=== PATIENT | female | born 1990 | race Two or more races ===

== ENCOUNTER 2022-01-10 19:50 | Emergency (ER) | payer OTHER ==
[~2022-01-10] VITALS: Ht 157.5 cm; Wt 58.5 kg
[2022-01-10] MEDS ORDERED: PRENA1 CHEW TA1.4 MG (20:08)
[2022-01-11] MEDS ORDERED: IBU800 MG PO (21:06)
[2022-01-11] MEDS ORDERED: ACETAMINOPHEN500 M1 PO (21:07)
[2022-01-11] MEDS ORDERED: METRONIDAZOLE500 MG PO (21:08)
== END 2022-01-10 22:48 | disposition home or self-care (01) ==
LOC: ER 19:50
DX: O20.9 Hemorrhage in early pregnancy, unspecified (principal)

== ENCOUNTER 2022-01-11 19:16 | Day surgery (SDC) | payer OTHER ==
[~2022-01-11] VITALS: Ht 157.5 cm; Wt 56.7 kg
[~2022-01-11 19:16] MED LIST: PRENA1 CHEW TA1.4 MG
[2022-01-11] MEDS ORDERED: IBU800 MG PO (21:06)
[2022-01-11] MEDS ORDERED: ACETAMINOPHEN500 M1 PO (21:07)
[2022-01-11] MEDS ORDERED: METRONIDAZOLE500 MG PO (21:08)
== END 2022-01-12 12:59 | disposition home or self-care (01) ==
LOC: CIR.AMB 19:16 → SEC-K 19:16 → O/R 19:16 → ER 19:16 → O/R 01-12 07:21 → SEC-K 01-12 07:21 → O/R 01-12 12:42 → CIR.AMB 01-12 12:59
PROVIDERS: ATTEND General Practice
DX: O03.4 Incomplete spontaneous abortion without complication (principal); Z20.822 Contact with and (suspected) exposure to COVID-19

== ENCOUNTER 2022-09-09 08:27 | Outpatient (CLI) | payer OTHER ==
[~2022-09-09 08:27] MED LIST changes: +ACETAMINOPHEN500 M1 PO; +IBU800 MG PO; +METRONIDAZOLE500 MG PO
== END 2022-09-09 09:35 | disposition home or self-care (01) ==
LOC: PRENATAL 08:27
PROVIDERS: ATTEND Obstetrics & Gynecology Maternal & Fetal Medicine
DX: O36.80X0 Pregnancy with inconclusive fetal viability, not applicable or unspecified (principal)

== ENCOUNTER 2022-10-29 08:13 | Outpatient (CLI) | payer OTHER | END 2022-10-29 09:24 | disposition home or self-care (01) | LOC: PRENATAL 08:13 | PROVIDERS: ATTEND Obstetrics & Gynecology Maternal & Fetal Medicine | DX: O35.9XX0 Maternal care for (suspected) fetal abnormality and damage, unspecified, not applicable or unspecified (principal); O35.3XX0 Maternal care for (suspected) damage to fetus from viral disease in mother, not applicable or unspecified; Z3A.20 20 weeks gestation of pregnancy ==

== ENCOUNTER 2023-01-27 09:32 | Outpatient (CLI) | payer OTHER | END 2023-01-27 10:45 | disposition home or self-care (01) | LOC: PRENATAL 09:32 | PROVIDERS: ATTEND Obstetrics & Gynecology Maternal & Fetal Medicine | DX: O26.849 Uterine size-date discrepancy, unspecified trimester (principal); O36.8199 Decreased fetal movements, unspecified trimester, other fetus; Z3A.34 34 weeks gestation of pregnancy ==

== ENCOUNTER 2023-03-08 13:03 | Inpatient (IN) | payer OTHER ==
[~2023-03-08] VITALS: Ht 157.5 cm; Wt 2.7 kg
[2023-03-21] MEDS ORDERED: PRENATAL TABLE1 EAC4 PO (06:42)
[2023-03-24] MEDS ORDERED: SURFAK240 M1 PO (10:17)
[2023-03-24] MEDS ORDERED: IBU800 MG PO (10:17)
[2023-03-24] MEDS ORDERED: INTEGRA PLUS C1 EACH PO (10:18)
== END 2023-03-24 13:08 | disposition home or self-care (01) | DRG 788 ==
LOC: LDR 03-13 13:30 → OB/GYN 03-21 06:10 → LDR 03-21 06:10 → O/R 03-21 20:57 → OB/GYN 03-21 22:10
PROVIDERS: ADMIT Obstetrics & Gynecology; ATTEND Obstetrics & Gynecology
PROC: 3E033VJ Introduction of Other Hormone into Peripheral Vein, Percutaneous Approach (ICD-10-PCS; 2023-03-21)
PROC: 3E0P7VZ Introduction of Hormone into Female Reproductive, Via Natural or Artificial Opening (ICD-10-PCS; 2023-03-21)
PROC: 4A1HXCZ Monitoring of Products of Conception, Cardiac Rate, External Approach (ICD-10-PCS; 2023-03-21)
PROC: 10D00Z1 Extraction of Products of Conception, Low, Open Approach (ICD-10-PCS; principal; 2023-03-21 20:00)
DX: O48.0 Post-term pregnancy (principal); Z3A.41 41 weeks gestation of pregnancy; Z37.0 Single live birth; Z20.822 Contact with and (suspected) exposure to COVID-19